=== PATIENT | female | born 1995 | race Caucasian/White ===

== ENCOUNTER → 2023-01-18 09:54 | Outpatient (CLI) | payer OTHER, MEDICAID, SELFPAY ==
--- NOTE | 2023-01-18 | DI.CT.S_ITS ---
PROCEDURE: CT SOFT TISSUE NECK W CON INDICATIONS: nontoxic goiter, unspecified TECHNIQUE: After the administration of intravenous contrast, 3.0 mm axial sections acquired from the sella to the aortic arch. Additional oblique axial 3.0 mm sections acquired through the pharynx. 3 mm thick coronal and sagittal reformats were generated. For radiation dose reduction, the following was used: automated exposure control. COMPARISON: None. FINDINGS: Image quality: This study is limited by body habitus. Lymph nodes: No enlarged lymph nodes seen throughout the neck. Vessels: Visualized vasculature appears patent. Neck spaces: The oropharynx, nasopharynx, and pharynx demonstrate no mucosal lesions. The vocal cords, false vocal cords, pyriform sinuses, epiglottis, vallecula, and tongue base all appear normal. Extramucosal spaces appear unremarkable. Glands: The right thyroid is prominently elevated, measuring 7 x 6 x 10.4 cm. Associated mass effect is seen, with tracheal deviation to the left, with narrowing of the trachea. A low-density left thyroid nodule can be seen that measures up 2.5 cm craniocaudal. The parotid and submandibular glands appear normal. Miscellaneous: Visualized brain and orbits appear normal. Lung apices appear clear. Superficial soft tissues appear normal. Bones: No suspicious bony lesions. Visualized sinuses and mastoids appear unremarkable. IMPRESSION: Prominently enlarged right thyroid (7 x 6 x 10.4 cm), with associated tracheal deviation and narrowing of the airway. 2.5 cm left thyroid nodule incidentally noted. Dictated by: Adrian Sanders M.D. on 01/18/2023 at 11:45 Approved by: Adrian Sanders M.D. on 01/18/2023 at 11:47
== END ==
PROVIDERS: PCP Nurse Practitioner; Referring Provider Otolaryngology; Visit Provider Otolaryngology
DX: E04.1 Nontoxic single thyroid nodule (principal); J39.8 Other specified diseases of upper respiratory tract; R06.1 Stridor
CPT/HCPCS: 70491